=== PATIENT | female | born 1960 | race Caucasian/White ===

== ENCOUNTER 2019-10-18 07:16 | Outpatient (CLI) | payer OTHER, SELFPAY ==
[2019-10-18 08:34] LABS: Cholesterol 281 mg/dL (0-200); HDL Direct 95 mg/dL (40-60); LDL Cholesterol Calculated 169 mg/dL (<130); Triglycerides 85 mg/dL (0-150)
== END 2019-10-18 07:17 | disposition home or self-care (01) ==
LOC: CHSLAB 07:22
PROVIDERS: PCP Internal Medicine; Visit Provider Internal Medicine
DX: E78.5 Hyperlipidemia, unspecified (principal)
CPT/HCPCS: 36415; 80061

== ENCOUNTER 2019-11-16 12:17 | Outpatient (CLI) | payer OTHER, SELFPAY ==
--- NOTE | ~2019-11-16 | MM_ITS ---
EXAMINATION: MM screening [place] BI w sara HISTORY: Screening mammogram TECHNIQUE: Craniocaudal and mediolateral oblique 3-D tomosynthesis images were obtained and synthetic 2-D images were generated. CAD analysis was submitted and interpreted. COMPARISON: 09/13/2018, 09/09/2017, 09/04/2016 bilateral digital screening mammogram examinations BREAST PARENCHYMAL COMPOSITION: The breasts are extremely dense, which lowers the sensitivity of mamm ography. FINDINGS: There is no evidence of suspicious mass, calcification, or architectural distortion to sugg est malignancy in either breast. There has been no suspicious interval change. IMPRESSION: 1. No mammographic evidence of malignancy. 2. Recommend routine screening mammography in one year. BI-RADS Category 1: Negative Reviewed, dictated and finalized at location A.
== END 2019-11-16 12:18 | disposition home or self-care (01) ==
LOC: CHSIMG 12:18
PROVIDERS: PCP Internal Medicine; Visit Provider Obstetrics & Gynecology
DX: Z12.31 Encounter for screening mammogram for malignant neoplasm of breast (principal)
CPT/HCPCS: 77063; 77067

== ENCOUNTER 2019-11-23 10:43 | Outpatient (CLI) | payer OTHER, SELFPAY ==
--- NOTE | ~2019-11-23 | US_ITS ---
EXAMINATION: US retroperitoneal comp DATE: 11/23/2019 11:09 INDICATION: Pelvic pain. Burning sensation. TECHNIQUE: Multiple ultrasound grayscale images of the kidneys were obtained. COMPARISON: CT dated 02/11/2017 FINDINGS: The right kidney measures 10.4 x 4.0 x 4.3 cm. The left kidney measures 10.3 x 4.6 x 4.4 cm. The kidn eys demonstrate normal echogenicity. There is no hydronephrosis in either kidney. No stones identifi ed. The bladder is normal with bilateral ureteral jets on color Doppler. IMPRESSION: 1. Normal kidneys without hydronephrosis. Reviewed, dictated and finalized at location A.
== END 2019-11-23 10:44 | disposition home or self-care (01) ==
PROVIDERS: PCP Nurse Practitioner Adult Health; Visit Provider Nurse Practitioner Adult Health
DX: R10.2 Pelvic and perineal pain (principal)
CPT/HCPCS: 76770

== ENCOUNTER 2020-06-12 11:01 | Outpatient (CLI) | payer OTHER, SELFPAY ==
[2020-06-12 11:38] LABS: SARS-CoV-2 Ag Negative (Negative)
[2020-06-13 17:28] LABS: SARS-CoV-2 RNA PCR Negative
== END 2020-06-12 11:02 | disposition home or self-care (01) ==
LOC: CHSLAB 11:04
PROVIDERS: PCP Internal Medicine; Visit Provider Internal Medicine
DX: J02.9 Acute pharyngitis, unspecified (principal); R09.81 Nasal congestion; R53.83 Other fatigue; Z20.822 Contact with and (suspected) exposure to COVID-19
CPT/HCPCS: 87426; C9803; U0003; U0005

== ENCOUNTER 2020-10-18 07:18 | Outpatient (CLI) | payer OTHER, SELFPAY ==
[2020-10-18 08:40] LABS: Alanine Aminotransferase 21 U/L (14-59); Albumin Level 4.4 g/dL (3.4-5.0); Alkaline Phosphatase 53 U/L (46-116); Anion Gap 8 mmol/L (8-16); Aspartate Amino Transferase 15 U/L (15-37); Bilirubin,Total 0.4 mg/dL (0.00-1.00); Blood Urea Nitrogen 17 mg/dL (7-18); Calcium 9.1 mg/dL (8.5-10.1); Carbon Dioxide 29 mmol/L (21-32); Chloride 104 mmol/L (98-108); Cholesterol 273 mg/dL (0-200); Estimated Glomerular Filt Rate 55; Glucose 93 mg/dL (70-99); HDL Direct 81 mg/dL (40-60); LDL Cholesterol Calculated 164 mg/dL (<130); Osmolality Calculated 293 mOsm/kg (285-295); Potassium 3.9 mmol/L (3.5-5.1); Sodium 141 mmol/L (136-145); Thyroid Stimulating Hormone 2.52 uIU/mL (0.36-3.74); Total Protein 7.3 g/dL (6.4-8.2); Triglycerides 141 mg/dL (0-150)
== END 2020-10-18 07:19 | disposition home or self-care (01) ==
LOC: CHSLAB 07:21
PROVIDERS: PCP Internal Medicine; Visit Provider Internal Medicine
DX: E78.5 Hyperlipidemia, unspecified (principal)
CPT/HCPCS: 36415; 80053; 80061; 84443

== ENCOUNTER 2020-11-19 13:17 | Outpatient (CLI) | payer OTHER, SELFPAY ==
--- NOTE | ~2020-11-19 | MM_ITS ---
EXAMINATION: MM screening [place] BI w sara HISTORY: Screening TECHNIQUE: Craniocaudal and mediolateral oblique 3-D tomosynthesis images were obtained and synthetic 2-D images were generated. CAD analysis was submitted and interpreted. COMPARISON: Comparison to multiple prior studies sequentially, with oldest reviewed study dated 09/03. BREAST PARENCHYMAL COMPOSITION: The breasts are extremely dense, which lowers the sensitivity of mamm ography FINDINGS: There is no evidence of suspicious mass, calcification, or architectural distortion to sugg est malignancy in either breast. There has been no suspicious interval change. IMPRESSION: 1. No mammographic evidence of malignancy. 2. Recommend routine screening mammography in one year. BI-RADS Category 1: Negative Reviewed, dictated and finalized at location A.
== END 2020-11-19 13:18 | disposition home or self-care (01) ==
LOC: CHSIMG 13:19
PROVIDERS: PCP Internal Medicine; Visit Provider Obstetrics & Gynecology
DX: Z12.31 Encounter for screening mammogram for malignant neoplasm of breast (principal)
CPT/HCPCS: 77063; 77067

== ENCOUNTER 2021-05-03 15:05 | Outpatient (CLI) | payer OTHER, SELFPAY ==
--- NOTE | ~2021-05-03 | XR_ITS ---
EXAMINATION: XR sinus min 3V INDICATION: Recurrent sinus infection TECHNIQUE: Five views of the paranasal sinuses are obtained. COMPARISON: 08/06/2009 FINDINGS: The left frontal sinuses hypoplastic compared to the right. No definite sinus opacification is identified. The nasal septum is midline. No facial fracture is identified. The facial soft tissue s are normal. A small right mastoid effusion is questioned. IMPRESSION: 1. Possible small right mastoid effusion without definite opacification of the paranasal sinuses. Sen sitivity of radiographs is low. If there is high clinical suspicion for sinus disease, CT is recommen ded. Reviewed, dictated and finalized at location A. ING MACHINE OPERATOR ULTRASONIC IMPRESSION: 1. Possible small right mastoid effusion without definite opacification of the paranasal sinuses. Sensitivity of radiographs is low. If there is high clinical suspicion for sinus disease, CT is recommended.
== END 2021-05-03 15:06 | disposition home or self-care (01) ==
LOC: CHSIMG 15:07
PROVIDERS: PCP Internal Medicine; Visit Provider Nurse Practitioner Family
DX: J32.9 Chronic sinusitis, unspecified (principal)
CPT/HCPCS: 70220

== ENCOUNTER 2021-05-08 08:47 | Outpatient (CLI) | payer OTHER, SELFPAY ==
--- NOTE | ~2021-05-08 | CT_ITS ---
EXAMINATION: CT sinus wo con EXAM DATE: 05/08/2021 09:06 INDICATION: Chronic Sinusitis chronic sinusitis behind nose . TECHNIQUE: Spiral CT of the sinuses was acquired in the axial plane. Coronal and sagittal reformatte d images were also reviewed. The dose-length product (DLP) for this examination was 268.17 mGy-cm. Iterative reconstruction (ASIR) was used as dose reduction technique. There is no prior study for co mparison. FINDINGS: The sinuses are normally developed. The sinuses are well aerated. The ostiomeatal unit s are patent. There is no sinus wall thickening. There is moderate leftward nasal septal deviat ion. There is trace right mastoid effusion. Middle ears are well aerated. External auditory canals are patent. The orbits and visualized soft tissues are unremarkable. IMPRESSION: Moderate leftward nasal septal deviation. Reviewed, dictated and finalized at location B. CULTURAL RESEARCH DIRECTOR
== END 2021-05-08 08:48 | disposition home or self-care (01) ==
LOC: CHSIMG 08:48
PROVIDERS: PCP Internal Medicine; Visit Provider Nurse Practitioner Family
DX: J32.9 Chronic sinusitis, unspecified (principal)
CPT/HCPCS: 70486

== ENCOUNTER 2021-10-25 07:13 | Outpatient (CLI) | payer OTHER, SELFPAY ==
[2021-10-25 07:55] LABS: Alanine Aminotransferase 22 U/L (14-59); Albumin Level 4.2 g/dL (3.4-5.0); Alkaline Phosphatase 58 U/L (46-116); Anion Gap 6 mmol/L (8-16); Aspartate Amino Transferase 14 U/L (15-37); Bilirubin,Total 0.4 mg/dL (0.00-1.00); Blood Urea Nitrogen 19 mg/dL (7-18); Calcium 9.2 mg/dL (8.5-10.1); Carbon Dioxide 29 mmol/L (21-32); Chloride 103 mmol/L (98-108); Cholesterol 289 mg/dL (0-200); Estimated Glomerular Filt Rate 53; Glucose 95 mg/dL (70-99); HDL Direct 90 mg/dL (40-60); LDL Cholesterol Calculated 182 mg/dL (<130); Osmolality Calculated 288 mOsm/kg (285-295); Potassium 3.5 mmol/L (3.5-5.1); Sodium 138 mmol/L (136-145); Total Protein 7.7 g/dL (6.4-8.2); Triglycerides 85 mg/dL (0-150)
== END 2021-10-25 07:14 | disposition home or self-care (01) ==
LOC: CHSLAB 07:16
PROVIDERS: PCP Internal Medicine; Visit Provider Internal Medicine
DX: Z00.00 Encounter for general adult medical examination without abnormal findings (principal); E78.5 Hyperlipidemia, unspecified
CPT/HCPCS: 36415; 80053; 80061

== ENCOUNTER 2021-11-21 08:14 | Outpatient (CLI) | payer OTHER, SELFPAY ==
--- NOTE | ~2021-11-21 | MM_ITS ---
EXAMINATION: MM screening [place] BI w sara HISTORY: Screening TECHNIQUE: Craniocaudal and mediolateral oblique 3-D tomosynthesis images were obtained and synthetic 2-D images were generated. CAD analysis was submitted and interpreted. COMPARISON: Comparison to multiple prior studies sequentially, with oldest reviewed study dated 09/03. BREAST PARENCHYMAL COMPOSITION: The breasts are extremely dense, which lowers the sensitivity of mamm ography FINDINGS: There is no evidence of suspicious mass, calcification, or architectural distortion to sugg est malignancy in either breast. There has been no suspicious interval change. IMPRESSION: 1. No mammographic evidence of malignancy. 2. Recommend routine screening mammography in one year. BI-RADS Category 1: Negative Reviewed, dictated and finalized at location A.
== END 2021-11-21 08:15 | disposition home or self-care (01) ==
LOC: CHSIMG 08:16
PROVIDERS: PCP Internal Medicine; Visit Provider Obstetrics & Gynecology
DX: Z12.31 Encounter for screening mammogram for malignant neoplasm of breast (principal)
CPT/HCPCS: 77063; 77067

== ENCOUNTER 2022-07-11 11:57 | Outpatient (CLI) | payer OTHER, SELFPAY ==
[2022-07-11 12:12] LABS: Basophils Absolute Auto 0.09 K/mm3 (0.00-0.10); Basophils Percent Auto 1.7 % (0.0-1.0); Eosinophils Absolute Auto 0.14 K/mm3 (0.02-0.50); Eosinophils Percent Auto 2.7 % (1.0-6.0); Hemoglobin 14.4 g/dL (12.0-15.0); Immature Granulocyte Absolute 0.01 K/mm3 (0.00-0.00); Immature Granulocyte Percent A 0.2 % (0.0-0.0); Lymphocytes Percent Auto 36.5 % (18.0-42.0); Mean Corpuscular Volume 87.5 fL (78.0-102.0); Mean Platelet Volume 8.9 fl (9.2-11.8); Monocytes Absolute Auto 0.46 K/mm3 (0.10-0.90); Monocytes Percent Auto 8.8 % (2.0-11.0); Neutrophils Absolute Auto 2.6 K/mm3 (1.7-7.2); Neutrophils Percent Auto 50.1 % (50.0-70.0); Platelet Count Result 279 K/mm3 (150-420); Red Blood Count 5.14 M/mm3 (4.20-5.40); Red Cell Distribution Width 12.4 % (11.6-14.4); White Blood Count 5.2 K/mm3 (4.8-10.8)
[2022-07-11 12:16] LABS: Add Urine Microscopic? YES; Appearance Urine Clear (Clear); Bilirubin Urine Negative (Negative); Blood Urine Trace-Intact (Negative); Color Urine Light Yellow (Yellow); Glucose Urine UA Negative (Negative); Ketones Urine Negative (Negative); Leukocyte Esterase Ur 1+ (Negative); Nitrate Urine Negative (Negative); Protein Urine Negative (Negative); Urobilinogen Urine 0.2 mg/dL (0.2-1.0); pH Urine 5.5 (5.0-8.0)
[2022-07-11 12:29] LABS: Bacteria Urine Trace /hpf; Squamous Epithelial Cell Urine Moderate /hpf (Few)
[2022-07-11 12:42] LABS: Alanine Aminotransferase 18 U/L (14-59); Albumin Level 4.8 g/dL (3.4-5.0); Alkaline Phosphatase 61 U/L (46-116); Amylase 36 U/L (25-115); Anion Gap 9 mmol/L (8-16); Aspartate Amino Transferase 17 U/L (15-37); Bilirubin,Total 0.5 mg/dL (0.00-1.00); Blood Urea Nitrogen 14 mg/dL (7-18); Carbon Dioxide 27 mmol/L (21-32); Chloride 101 mmol/L (98-108); Estimated Glomerular Filt Rate 53; Glucose 105 mg/dL (70-99); Lipase 46 U/L (16-77); Osmolality Calculated 284 mOsm/kg (285-295); Potassium 3.8 mmol/L (3.5-5.1); Sodium 137 mmol/L (136-145); Total Protein 7.8 g/dL (6.4-8.2)
[2022-07-11 12:50] LABS: Calcium 9.3 mg/dL (8.5-10.1)
== END 2022-07-11 11:58 | disposition home or self-care (01) ==
LOC: CHSLAB 11:58
PROVIDERS: PCP Internal Medicine; Visit Provider Internal Medicine
DX: R10.9 Unspecified abdominal pain (principal)
CPT/HCPCS: 36415; 80053; 81001; 82150; 83690; 85025

== ENCOUNTER 2022-07-15 09:45 | Outpatient (CLI) | payer OTHER, SELFPAY ==
--- NOTE | ~2022-07-15 | CT_ITS ---
CT Abdomen and Pelvis with contrast. History: Abdominal pain. Spiral CT of the abdomen and pelvis was performed after the administration of intravenous contrast. 1 00 cc of Omnipaque 350 was administered intravenously without complication. Dose reduction technique was used on this scan by utilizing automated exposure control and iterative reconstruction technique. The dose-length product (DLP) was 205.76 mGy-cm. COMPARISON: 02/11/2017 Findings: Scans through the lung bases demonstrate mild atelectatic change. Multiple small hepatic cysts are present. The spleen, pancreas, gallbladder, adrenals and kidneys are within normal limits. No evidence of aortic aneurysm. No lymphadenopathy is seen. There is no evidence of bowel obstruction. There is no evidence to suggest acute appendicitis or dive rticulitis. Images through the pelvis were performed. Urinary bladder unremarkable. No pelvic mass identified. No ascites is seen. Impression: No significant abnormalities seen. [place]ed, dictated [place] [facility] [place] Impression: No significant abnormalities seen.
== END 2022-07-15 09:46 | disposition home or self-care (01) ==
LOC: CHSIMG 09:47
PROVIDERS: PCP Internal Medicine; Visit Provider Internal Medicine
DX: R10.84 Generalized abdominal pain (principal)
CPT/HCPCS: 74177; Q9967

== ENCOUNTER 2022-08-25 07:38 | Day surgery (SDC) | payer OTHER, SELFPAY ==
[2022-08-19 12:22] VITALS: BMI 20.8
--- NOTE | 2022-08-25 07:36 | P.PNAN_ITS ---
Anes - Initial Pre Proc Eval Procedure: Operation Date: 08/25/22 09:00 Proposed Procedures p Esophagogastroduodenoscopy - Morgan Coyle MD s Diagnostic Colonoscopy - Morgan Coyle MD Date/Time: 08/25/22 07:36 Surgeon: Morgan Coyle MD Pre Op Diagnosis: Persistant Dyspepsia, Family HX Colon CA Patient Data Age: 62 Gender: F Height: 1.55 m Weight: 50 kg Allergies Allergy/AdvReac Type Severity Reaction Status Date / Time No Known Allergies Allergy Verified 08/25/22 08:02 Home Medications Medication Instructions Recorded Confirmed Type montelukast 10 mg tablet 10 mg PO DAILY 11/15/19 08/19/22 History (Singulair) sodium,potassium,mag sulfates 17.5 See Rx Instructions PO .COMPLEX 08/18/22 Rx gram-3.13 gram-1.6 gram oral soln #354 mL (Suprep Bowel Prep Kit) alendronate 35 mg tablet 35 mg PO WEEKLY 08/19/22 08/19/22 History Patient hx anesthesia problems: none Family hx anesthesia problems: none Results Review: All pre-operative results and documents have been reviewed as part of the pre- operative evaluation. [facility] Past Medical History Medical History (Updated 08/25/22 @ 07:37 by Lorenzo Hazel MD) COPD (chronic obstructive pulmonary disease) Endometriosis Surgical History Surgical History History of colonoscopy History of hysterectomy History of tonsillectomy Family History Family History Other Cancer Social History Social History Smoking packs per day: 1 Smoking cigarettes per day: 20.0 Years smoked: 30 Smoking pack-years: 30.00 Smoking status: Former smoker Tobacco type: cigarettes Alcohol intake: former Alcohol use details: Social Substance use: never Substance use type: does not use Living arrangements: with family Spiritual care concerns: No Anes - Eval Final PreProcedure Day of Procedure 08/25/22 07:36 Patient weight: normal Heart: regular rate and rhythm Lungs: clear to auscultation and normal air movement Airway: Mallampati scale class II Neurological: alert and oriented Last oral intake: >/= 8 hours ASA classification: II Emergent: no Anesthetic plan: proceed Anesthesia type and monitoring: general GIVS Results Review: All pre-operative results and documents have been reviewed as part of the pre- operative evaluation. Informed Consent: The patient's anesthetic plan and its attendant risks and benefits were discussed with the patient/family/POA. Questions were solicited and answers provided to the satisfaction of the patient/family/POA.
[2022-08-25 08:05] VITALS: BP 136/85; PULSE 88; RESP 20; TEMP 36.9; O2SAT 100
[2022-08-25] MEDS: LACTATED RINGERS 1,000 ML 150 ML IV CONT (08:19)
--- NOTE | 2022-08-25 08:31 | PM.HPGS ---
History of Present Illness History of Present Illness Consent: Risks, benefits, and alternatives have been discussed and questions answered. Patient agrees to proceed with procedure. Chief complaint: Persistant Dyspepsia, Family HX Colon CA Narrative: Irma Jason is a 62 year old female Presents for screening colonoscopy. Patient's sister has had colon polyps. Patient reports that her weight appetite and bowel movements are normal. She denies abdominal pain. She has had no bleeding. Patient does complain of excess belching. Occasional flatus. She has tried Gas-X with no relief. Patient was given a trial of famotidine with no specific relief. An EGD is requested as well as colonoscopy. Review of Systems Review of Systems: Review of systems noncontributory. [facility] Past Medical History Medical History (Updated 08/25/22 @ 08:33 by Morgan Coyle MD) COPD (chronic obstructive pulmonary disease) Endometriosis Surgical History Surgical History History of colonoscopy History of hysterectomy History of tonsillectomy Family History Family History Other Cancer Social History Social History Smoking packs per day: 1 Smoking cigarettes per day: 20.0 Years smoked: 30 Smoking pack-years: 30.00 Smoking status: Former smoker Tobacco type: cigarettes Alcohol intake: former Alcohol use details: Social Substance use: never Substance use type: does not use Living arrangements: with family Spiritual care concerns: No Meds Home Medications and Allergies Home Medications Medication Instructions Recorded Confirmed Type montelukast 10 mg tablet 10 mg PO DAILY 11/15/19 08/19/22 History (Singulair) sodium,potassium,mag sulfates 17.5 See Rx Instructions PO .COMPLEX 08/18/22 Rx gram-3.13 gram-1.6 gram oral soln #354 mL (Suprep Bowel Prep Kit) alendronate 35 mg tablet 35 mg PO WEEKLY 08/19/22 08/19/22 History Allergies Allergy/AdvReac Type Severity Reaction Status Date / Time No Known Allergies Allergy Verified 08/25/22 08:02 Vital Signs Vital Signs - 24 hr 08/25/22 08:05 Temperature 98.5 F Pulse Rate 88 Respiratory Rate 20 Blood Pressure 136/85 Pulse Oximetry 100 Oxygen Delivery Room Air Exam Narrative: Physical exam reveals patient to be alert. Vital signs stable. HEENT exam is unremarkable. Patient is anicteric. Lungs are clear to auscultation and percussion. Heart is without murmur or extra sounds. Abdomen bowel sounds are present soft nontender with no organomegaly. Digital external rectal exam is normal. Assessment and Plan Assessment and plan (1) Encounter for screening colonoscopy: Code(s): Z12.11 - Encounter for screening for malignant neoplasm of colon Status: Acute Assessment and Plan: Patient presents for screening colonoscopy. Previous colonoscopy done many years ago parent was unremarkable. Because her sister had colon cancer anticipate follow-up colonoscopy at 5 year intervals. (2) Family hx of colon cancer: Code(s): Z80.0 - Family history of malignant neoplasm of digestive organs Status: Acute Assessment and Plan: Patient's sister has had colon cancer. Plan to continue screening colonoscopies at intervals. (3) Belching: Code(s): R14.2 - Eructation Status: Acute Assessment and Plan: Patient complains of significant belching poorly responsive to Gas- X. EGD is requested will be performed. Suggest avoiding gaseous foods. Continue trial of Gas-X. Further recommendations may be given after endoscopy.
[2022-08-25 09:46] VITALS: BP 107/73; PULSE 90; RESP 20; O2SAT 100
[2022-08-25 09:56] VITALS: BP 110/75; PULSE 83; RESP 20; O2SAT 100
[2022-08-25 10:06] VITALS: BP 124/87; PULSE 73; RESP 20; O2SAT 100
--- NOTE | 2022-08-25 14:58 | WPDANESPN ---
Anes - Prog Note Post-Op Date/Time: 08/25/22 14:58 Cardiovascular status: normal Respiratory status: normal Airway patency: baseline Mental status: baseline Post-Op hydration status: normal Vital Signs: Last Vital Signs Temp 36.9 C 08/25/22 08:05 Pulse 73 08/25/22 10:06 Resp 20 08/25/22 10:06 BP 124/87 08/25/22 10:06 Pulse Ox 100 08/25/22 10:06 O2 Del Method Room Air 08/25/22 10:06 Pain Score (VAS): 0 I/O: Intake & Output 08/24/22 08/25/22 08/25/22 23:59 07:59 15:59 Intake Total 400 Balance 400 Post-procedural complaints: none Patient Feedback: Patient satisfied with anesthetic care.
== END 2022-08-25 10:28 | disposition home or self-care (01) ==
PROVIDERS: PCP Internal Medicine; Visit Provider Internal Medicine Gastroenterology
PROC: 0DJ08ZZ Inspection of Upper Intestinal Tract, Via Natural or Artificial Opening Endoscopic (ICD-10-PCS; CPT 43235; principal; 2022-08-25 09:00)
PROC: 0DJD8ZZ Inspection of Lower Intestinal Tract, Via Natural or Artificial Opening Endoscopic (ICD-10-PCS; CPT 45378; 2022-08-25 09:00)
DX: Z80.0 Family history of malignant neoplasm of digestive organs (principal)
CPT/HCPCS: 45378; 43239

== ENCOUNTER 2022-10-08 10:13 | Outpatient (CLI) | payer OTHER, SELFPAY ==
--- NOTE | ~2022-10-08 | CT_ITS ---
EXAMINATION: CT lung screening DATE: 10/08/2022 10:26 INDICATION: History of tobacco dependence TECHNIQUE: Computed tomography (CT) of the chest was performed without intravenous contrast. The dose -length product was 61.85 mGy-cm. COMPARISON: CT dated 05/13/2018 FINDINGS: Heart size is normal. No significant pleural or pericardial effusion. There is mediastinal lymphadenopathy. Precarinal lymph node measures 13 mm short axis, likely reactive. There are liver cy sts.There are small calcified granulomas in the right lung. No endobronchial lesions. No pneumothorax . No focal airspace consolidation. No focal lytic or blastic lesions. IMPRESSION: 1. Lung-RADS category 1: Negative. Continue annual screening with noncontrast low-dose chest CT in 12 months. Reviewed, dictated and finalized at location B. IMPRESSION: 1. Lung-RADS category 1: Negative. Continue annual screening with noncontrast l ow-dose chest CT in 12 months.
== END 2022-10-08 10:14 | disposition home or self-care (01) ==
LOC: CHSIMG 10:15
PROVIDERS: PCP Internal Medicine; Visit Provider Internal Medicine
DX: Z12.2 Encounter for screening for malignant neoplasm of respiratory organs (principal); Z87.891 Personal history of nicotine dependence
CPT/HCPCS: 71271

== ENCOUNTER 2022-11-26 14:11 | Outpatient (CLI) | payer OTHER, SELFPAY ==
--- NOTE | ~2022-11-26 | MM_ITS ---
EXAMINATION: MM screening [facility] BI w sara HISTORY: Screening mammogram TECHNIQUE: Craniocaudal and mediolateral oblique 3-D tomosynthesis images were obtained and synthetic 2-D images were generated. CAD analysis was submitted and interpreted. COMPARISON: 11/21/2021, 11/19/2020, 11/16/2019 BREAST PARENCHYMAL COMPOSITION: The breasts are heterogeneously dense, which may obscure small masses . FINDINGS: No suspicious mass, calcification, or architectural distortion are identified in either josue ast to suggest malignancy. There has been no suspicious interval change. IMPRESSION: 1. No mammographic evidence of malignancy. 2. Recommend routine screening mammography in one year. BI-RADS Category 1: Negative Reviewed, dictated and finalized at location A.
== END 2022-11-26 14:12 | disposition home or self-care (01) ==
LOC: CHSIMG 14:12
PROVIDERS: PCP Internal Medicine; Visit Provider Obstetrics & Gynecology
DX: Z12.31 Encounter for screening mammogram for malignant neoplasm of breast (principal)
CPT/HCPCS: 77063; 77067

== ENCOUNTER 2023-11-03 08:10 | Outpatient (CLI) | payer OTHER, SELFPAY ==
[2023-11-03 08:25] LABS: Basophils Absolute Auto 0.09 K/mm3 (0.00-0.10); Basophils Percent Auto 1.7 % (0.0-1.0); Eosinophils Absolute Auto 0.14 K/mm3 (0.02-0.50); Eosinophils Percent Auto 2.6 % (1.0-6.0); Hematocrit 46.5 % (35.0-49.0); Hemoglobin 14.6 g/dL (12.0-15.0); Immature Granulocyte Absolute 0.01 K/mm3 (0.00-0.00); Immature Granulocyte Percent A 0.2 % (0.0-0.0); Lymphocytes Percent Auto 47.7 % (18.0-42.0); Mean Corpuscular HGB Conc 31.4 g/dL (32-36); Mean Corpuscular Hemoglobin 27.7 pg (27.0-31.0); Mean Corpuscular Volume 88.2 fL (78.0-102.0); Mean Platelet Volume 8.7 fl (9.2-11.8); Monocytes Absolute Auto 0.48 K/mm3 (0.10-0.90); Monocytes Percent Auto 8.8 % (2.0-11.0); Neutrophils Absolute Auto 2.13 K/mm3 (1.70-7.20); Platelet Count Result 288 K/mm3 (150-420); Red Blood Count 5.27 M/mm3 (4.20-5.40); Red Cell Distribution Width 12.8 % (11.6-14.4); White Blood Count 5.5 K/mm3 (4.8-10.8)
[2023-11-03 08:33] LABS: Appearance Urine Clear (Clear); Bilirubin Urine Negative (Negative); Blood Urine Trace-intact (Negative); Color Urine Light Yellow (Yellow); Glucose Urine UA Negative (Negative); Ketones Urine Negative (Negative); Leukocyte Esterase Ur 1+ LEU/UL (Negative); Nitrate Urine Negative (Negative); Protein Urine Negative (Negative); Specific Grav Ur 1.025 (1.010-1.020); Urobilinogen Urine 0.2 mg/dL (0.2-1.0)
[2023-11-03 08:41] LABS: Add Urine Microscopic? YES
[2023-11-03 08:42] LABS: Bacteria Urine 1+ /hpf; Mucus Urine Moderate /lpf; RBC Urine 0-2 /hpf (0-2); Squamous Epithelial Cell Urine Moderate /hpf (Few); WBC Urine 0-3 /hpf (0-3)
[2023-11-03 08:53] LABS: Alanine Aminotransferase 20 U/L (14-59); Albumin Level 4.5 g/dL (3.4-5.0); Alkaline Phosphatase 46 U/L (46-116); Anion Gap 7 mmol/L (4-12); Aspartate Amino Transferase 18 U/L (15-37); Bilirubin,Total 0.4 mg/dL (0.00-1.00); Blood Urea Nitrogen 14 mg/dL (7-18); Calcium 9.4 mg/dL (8.5-10.1); Carbon Dioxide 32 mmol/L (21-32); Chloride 102 mmol/L (98-108); Cholesterol 300 mg/dL (0-200); Estimated Glomerular Filt Rate 52; Glucose 92 mg/dL (70-99); HDL Direct 105 mg/dL (40-60); LDL Cholesterol Calculated 173 mg/dL (<130); Osmolality Calculated 292 mOsm/kg (285-295); Potassium 3.8 mmol/L (3.5-5.1); Sodium 141 mmol/L (136-145); Thyroid Stimulating Hormone 2.79 uIU/mL (0.36-3.74); Total Protein 7.7 g/dL (6.4-8.2); Triglycerides 110 mg/dL (0-150)
== END 2023-11-03 08:11 | disposition home or self-care (01) ==
LOC: CHSLAB 08:11
PROVIDERS: PCP Internal Medicine; Visit Provider Internal Medicine
DX: Z00.00 Encounter for general adult medical examination without abnormal findings (principal); E78.5 Hyperlipidemia, unspecified; R82.90 Unspecified abnormal findings in urine
CPT/HCPCS: 36415; 80053; 80061; 81001; 84443; 85025; 87086

== ENCOUNTER 2023-11-30 11:37 | Outpatient (CLI) | payer OTHER, SELFPAY ==
--- NOTE | ~2023-11-30 | MM_ITS ---
EXAMINATION: MM screening [place] BI w sara HISTORY: Screening TECHNIQUE: Craniocaudal and mediolateral oblique 3-D tomosynthesis images were obtained and synthetic 2-D images were generated. CAD analysis was submitted and interpreted. COMPARISON: Comparison to multiple prior studies sequentially, with oldest reviewed study dated 09/09. BREAST PARENCHYMAL COMPOSITION: Dense: The breasts are extremely dense, which lowers the sensitivity of mammography. FINDINGS: There is no evidence of suspicious mass, calcification, or architectural distortion to sugg est malignancy in either breast. There has been no suspicious interval change. IMPRESSION: 1. No mammographic evidence of malignancy. 2. Recommend routine screening mammography in one year. BI-RADS Category 1: Negative Reviewed, dictated and finalized at location B.
== END 2023-11-30 11:38 | disposition home or self-care (01) ==
LOC: CHSIMG 11:40
PROVIDERS: PCP Internal Medicine; Visit Provider Obstetrics & Gynecology
DX: Z12.31 Encounter for screening mammogram for malignant neoplasm of breast (principal)
CPT/HCPCS: 77063; 77067

== ENCOUNTER 2024-02-17 13:10 | Outpatient (CLI) | payer OTHER, SELFPAY ==
--- NOTE | ~2024-02-17 | DEXA_ITS ---
Bone Density Report Name: DANIEL PINA Age: 64 Sex: Female Ethnicity: White Date of : 1960 Indication: postmenopausal; screening for osteoporosis; height loss; hysterectomy; Referring Provider: WHITNEY JONES Study: Bone densitometry was performed. Exam Date: February 17, 2024 Accession number: [id number] Bone Density: Region BMD T-score Z-score Classification AP Spine(L1-L4) 0.913 -1.2 0.5 Osteopenia Femoral Neck (Left) 0.613 -2.1 -0.7 Osteopenia Total Hip (Left) 0.922 -0.2 1.0 Normal Femoral Neck (Right) 0.648 -1.8 -0.3 Osteopenia Total Hip (Right) 0.905 -0.3 0.9 Normal Femoral Neck Mean 0.631 -2.0 -0.5 Osteopenia Total Hip Mean 0.914 -0.2 0.9 Normal World Health Organization criteria for BMD impression classify patients as: Normal (T-score at or above -1.0), Osteopenia (T-score between -1.0 and -2.5), or Osteoporosis (T-score at or below -2.5). 10-year Fracture Risk: FRAX not reported because: Treated for osteoporosis Clinical Information Provided by Patient: Is being treated for osteoporosis Has used the following medications: Fosamax (i.e. alendronate), Vitamin D, multivitamin Has the following medical conditions: Hysterectomy Patient maximum height was 62 Menopause Age: 50 Does not regularly consume dairy products Drinks caffeinated beverages Onset of menses at age 13 Number of children 0 Impression: The patient has low bone mass, based on the Left Femoral Neck T-score. Discussion: It is important to ask patients whether they are taking their medications and to encourage continued and appropriate compliance with their osteoporosis therapies to reduce fracture risk. It is also important to review their risk factors and encourage appropriate calcium and vitamin D intakes, exercise, fall prevention and other lifestyle measures. Follow-Up: Consider a repeat BMD and Vertebral Fracture Assessment (VFA) exam in 2 years or sooner if medically necessary, to reassess this patient's status. Reported by: SABRA on 02/17/2024 1:37:00 PM. Reviewed, dictated and finalized at location AJay Jay VARMA
== END 2024-02-17 13:11 | disposition home or self-care (01) ==
LOC: CHSIMG 13:13
PROVIDERS: PCP Internal Medicine; Visit Provider Obstetrics & Gynecology
DX: Z78.0 Asymptomatic menopausal state (principal); M85.89 Other specified disorders of bone density and structure, multiple sites
CPT/HCPCS: 77080

== ENCOUNTER 2024-05-20 15:16 | Emergency (ER) | payer OTHER, SELFPAY ==
[2024-05-20] VITALS (10 sets, daily range): BP systolic 121–155; BP diastolic 69–89; PULSE 72–92; RESP 16–918; TEMP 37.4; O2SAT 96–100
--- NOTE | 2024-05-20 15:31 | ECG_ITS ---
Test Date: 2024-05-20 15:38:38 Measurements Intervals [place] Rate: 71 P: 73 ME: 125 QRS: 88 QRSD: 84 T: 78 QT: 371 QTc: 405 Interpretive Statements SINUS RHYTHM NONSPECIFIC T-WAVE ABNORMALITY LEFT VENTRICULAR HYPERTROPHY ABNORMAL ECG Electronically Signed On 05-20-2024 17:31:46 KID CLUB ATTENDANT by Paul Royal M.D.
--- NOTE | 2024-05-20 16:13 | ED.GENADULT ---
HPI - General Adult General Chief complaint: Arrhythmia/Palpitations Stated complaint: left shoulder pain Time Seen by Provider: 05/20/24 16:13 Source: patient Mode of arrival: ambulatory Limitations: no limitations History of Present Illness HPI narrative: 64-year-old white female complained of left shoulder pain intermittently worse when she is moving it denies any shortness of breath chest pain diaphoresis nausea vomiting Or palpitations. It has been bothering her off and on for 2 days. It is gone now. She also complains of left hip pain chronically for years from a bad disc it has not changed any. Denies any problems walking talking seeing or hearing dizziness lightheadedness nausea vomiting rash or itching bleeding or bruising or any other complaints. Related Data Home Medications ?Medication ?Instructions ?Recorded ?Confirmed ?Last Taken ?Type montelukast 10 mg tablet 10 mg PO DAILY 11/15/19 08/19/22 Unknown History (Singulair) alendronate 35 mg tablet 35 mg PO WEEKLY 08/19/22 08/19/22 Unknown History Allergies Allergy/AdvReac Type Severity Reaction Status Date / Time No Known Allergies Allergy Verified 05/20/24 15:33 Review of Systems Review of Systems: All systems reviewed & are unremarkable except as noted in HPI and below PMFSH Past Medical History Medical History Endometriosis COPD (chronic obstructive pulmonary disease) Surgical History Surgical History History of tonsillectomy History of hysterectomy History of colonoscopy Family History Family History Other Cancer Social History Social History Smoking packs per day: 1 Smoking cigarettes per day: 20.0 Years smoked: 30 Smoking pack-years: 30.00 Smoking status: Former smoker Tobacco type: cigarettes Alcohol intake: former Alcohol use details: Social Substance use: never Substance use type: does not use Living arrangements: with family Spiritual care concerns: No Exam Narrative: White female patient with no apparent distress.? Head normocephalic, atraumatic.? Eyes conjunctiva pink sclera nonicteric.? Extraocular movements are intact.? Ears externally normal.? TMs are normal. ?Oropharynx is clear with moist mucous membranes without exudates.? Neck is supple nontender no lymphadenopathy.? Back is nontender. Negative straight leg raise.? Lungs are clear.? Heart is regular rate and rhythm without murmurs gallops or rubs.? Chest wall nontender. Abdomen is soft and nontender no hepatosplenomegaly or masses no CVA tenderness no abdominal bruits.? Extremities no cyanosis clubbing or edema.? Left shoulder full range of motion nontender neurovascular intact to her left upper extremity. Left hip has full range of motion as does all her joints her left lower extremity. There is no tenderness. Skin is warm and dry without rashes or lesions.? Neurological patient is alert and oriented x4.? Motor and sensory grossly intact.? Gait is normal. Course Vital Signs Vital signs: Vital Signs Temperature 37.4 C 05/20/24 15:16 Pulse Rate 92 05/20/24 15:16 Respiratory Rate 20 05/20/24 15:16 Blood Pressure 155/89 H 05/20/24 15:16 Pulse Oximetry 100 05/20/24 15:16 Oxygen Delivery Room Air 05/20/24 15:16 Temperature 37.4 C 05/20/24 15:16 Pulse Rate 75 05/20/24 15:31 Respiratory Rate 20 05/20/24 15:16 Blood Pressure 155/89 H 05/20/24 15:16 Pulse Oximetry 100 05/20/24 15:16 Oxygen Delivery Room Air 05/20/24 15:16 Medical Decision Making [facility] Narrative Medical decision making narrative: Patient placed in room: Three ? History and physical was performed. Independent Historian: patient External Source Review: no old EKGs to compare Differential Dx includes but not limited to: atrial fib flutter heart disease disc disease back Medications were Reviewed: home meds reviewed Medications given: Independently Interpreted by me: EKG shows normal sinus rhythm at a rate of 71 T-wave inversion in aVL and V2 no acute ST wave abnormalities impression abnormal EKG. As independently interpreted by me. Shared decision Making: Evaluation was discussed all questions were asked and answered patient agreed with the plan. Social Situation Impacting Patients Care: Vital Signs Vital Signs: Vital Signs Temperature 37.4 C 05/20/24 15:16 Pulse Rate 92 05/20/24 15:16 Respiratory Rate 20 05/20/24 15:16 Blood Pressure 155/89 H 05/20/24 15:16 Pulse Oximetry 100 05/20/24 15:16 Oxygen Delivery Room Air 05/20/24 15:16 Temperature 37.4 C 05/20/24 15:16 Pulse Rate 75 05/20/24 15:31 Respiratory Rate 20 05/20/24 15:16 Blood Pressure 155/89 H 05/20/24 15:16 Pulse Oximetry 100 05/20/24 15:16 Oxygen Delivery Room Air 05/20/24 15:16 Discharge Plan Discharge Clinical Impression: Acute pain of left shoulder Degenerative disc disease Qualifiers: Spinal region: lumbar Disc-related pain type: unspecified whether pain present Qualified Code(s): M51.369 - Other intervertebral disc degeneration, lumbar region without mention of lumbar back pain or lower extremity pain Patient Disposition: Home, Self-Care Condition: Stable Instructions: Arthralgia (ED) Additional Instructions: Tylenol As needed for pain. Follow up with Dr. Zapien next week. Return if you get worse or develops new symptoms Patient Language: Upper Sorbian Prescriptions: No Action montelukast [Singulair] 10 mg tablet 10 mg PO DAILY alendronate [Fosamax] 35 mg Tablet 35 mg PO WEEKLY Follow-up/Referrals: Heber Zapien MD [Primary Care Provider] - Time of Disposition: 16:25
== END 2024-05-20 16:35 | disposition home or self-care (01) ==
LOC: CHSED 16:39
PROVIDERS: Emergency Provider Emergency Medicine; PCP Internal Medicine
DX: M25.512 Pain in left shoulder (principal); M51.369 Other intervertebral disc degeneration, lumbar region without mention of lumbar back pain or lower extremity pain; J44.9 Chronic obstructive pulmonary disease, unspecified; Z87.891 Personal history of nicotine dependence
CPT/HCPCS: 93005; 99284

== ENCOUNTER 2024-07-22 15:11 | Outpatient (CLI) | payer OTHER, SELFPAY | END 2024-07-22 15:12 | disposition home or self-care (01) | LOC: CHSIMG 15:13 | PROVIDERS: PCP Internal Medicine; Visit Provider Internal Medicine | DX: M54.50 Low back pain, unspecified (principal); M54.16 Radiculopathy, lumbar region | CPT/HCPCS: 72100 ==

== ENCOUNTER 2024-12-02 13:10 | Outpatient (CLI) | payer OTHER, SELFPAY ==
--- NOTE | ~2024-12-02 | MM_ITS ---
EXAMINATION: MM screening [place] BI w sara HISTORY: Screening mammogram TECHNIQUE: Craniocaudal and mediolateral oblique 3-D tomosynthesis images were obtained and synthetic 2-D images were generated. CAD analysis was submitted and interpreted. COMPARISON: 11/30/2023, 11/26/2022, 11/21/2021 BREAST PARENCHYMAL COMPOSITION:Dense: The breasts are extremely dense, which lowers the sensitivity o f mammography. FINDINGS: No suspicious mass, calcification, or architectural distortion are identified in either josue ast to suggest malignancy. There has been no suspicious interval change. IMPRESSION: No mammographic evidence of malignancy. Recommend routine screening mammography in one year. BI-RADS Category 1: Negative Reviewed, dictated and finalized at location .
== END 2024-12-02 13:11 | disposition home or self-care (01) ==
LOC: CHSIMG 13:10
PROVIDERS: PCP Internal Medicine; Visit Provider Obstetrics & Gynecology
DX: Z12.31 Encounter for screening mammogram for malignant neoplasm of breast (principal)
CPT/HCPCS: 77063; 77067

== ENCOUNTER 2025-01-11 07:24 | Outpatient (CLI) | payer MEDICARE, OTHER, SELFPAY ==
[2025-01-11 07:53] LABS: Add Urine Microscopic? YES; Appearance Urine Clear (Clear); Glucose Urine UA Negative (Negative); Hematocrit 45.8 % (35.0-42.0); Hemoglobin 14.4 g/dL (11.7-13.8); Leukocyte Esterase Ur Trace (Negative); Mean Corpuscular HGB Conc 31.4 g/dL (32-36); Mean Corpuscular Hemoglobin 27.6 pg (27.0-31.0); Mean Corpuscular Volume 87.9 fL (78.0-102.0); Nitrate Urine Negative (Negative); Platelet Count Result 275 K/mm3 (150-420); Red Blood Count 5.21 M/mm3 (4.20-5.40); Specific Grav Ur 1.020 (1.010-1.020); White Blood Count 6.1 K/mm3 (4.8-10.8)
[2025-01-11 08:20] LABS: Alanine Aminotransferase 16 U/L (6-35); Albumin Level 5.0 g/dL (3.5-5.1); Alkaline Phosphatase 46 U/L (38-126); Anion Gap 8 mmol/L (4-12); Aspartate Amino Transferase 28 U/L (14-36); Bilirubin,Total 0.7 mg/dL (0.2-1.3); Blood Urea Nitrogen 14 mg/dL (7-17); Calcium 10.4 mg/dL (8.4-10.2); Carbon Dioxide 31 mmol/L (22-30); Chloride 104 mmol/L (98-107); Estimated Glomerular Filt Rate 54; Glucose 104 mg/dL (65-110); Osmolality Calculated 296 mOsm/kg (285-295); Potassium 4.4 mmol/L (3.4-5.0); Sodium 143 mmol/L (137-145); Total Protein 7.6 g/dL (6.3-8.2); Triglycerides 165 mg/dL (<150)
[2025-01-11 08:21] LABS: Cholesterol > 325 mg/dL (0-200); HDL Direct > 110 mg/dL
[2025-01-11 08:50] LABS: Thyroid Stimulating Hormone 3.650 uIU/mL (0.465-4.680)
== END 2025-01-11 07:25 | disposition home or self-care (01) ==
PROVIDERS: PCP Internal Medicine; Visit Provider Internal Medicine
DX: E87.5 Hyperkalemia (principal); Z13.6 Encounter for screening for cardiovascular disorders; R53.83 Other fatigue
CPT/HCPCS: 36415; 80053; 80061; 81001; 84443; 85027

== ENCOUNTER 2025-01-13 09:49 | Outpatient (CLI) | payer MEDICARE, SELFPAY ==
[2025-01-13 10:53] LABS: Calcium 9.9 mg/dL (8.4-10.2)
[2025-01-14 14:08] LABS: Calcium, Ionized 5.2 mg/dL (4.5-5.6)
== END 2025-01-13 09:50 | disposition home or self-care (01) ==
LOC: CHSLAB 09:51
PROVIDERS: PCP Internal Medicine; Visit Provider Internal Medicine
DX: E83.52 Hypercalcemia (principal)
CPT/HCPCS: 36415; 82310; 82330; 83970; 84100

== ENCOUNTER 2025-03-01 16:23 | Outpatient (CLI) | payer MEDICARE, OTHER, SELFPAY ==
--- NOTE | ~2025-03-01 | XR_ITS ---
EXAMINATION: XR shoulder LT min 2V, 03/01/2025 16:45 CDT HISTORY: PAIN COMPARISON: No comparisons available. Findings: No acute fracture or malalignment. No significant degenerative changes. Soft tissues unremarkable. Impression: No acute fracture or malalignment. Reviewed, dictated and finalized at location P. Impression: No acute fracture or malalignment.
--- NOTE | ~2025-03-01 | XR_ITS ---
[id number] Indication: PAIN Comparison: None Findings: Grade 1 anterolisthesis C4 on C5, no fracture. Moderate loss of disc height C5-6 and C6-7. Soft tissues unremarkable Impression: No acute abnormality. Reviewed, dictated and finalized at location P. Impression: No acute abnormality.
== END 2025-03-01 16:24 | disposition home or self-care (01) ==
LOC: CHSIMG 16:24
PROVIDERS: PCP Internal Medicine; Visit Provider Internal Medicine
DX: M25.512 Pain in left shoulder (principal); M79.602 Pain in left arm
CPT/HCPCS: 72040; 73030